=== PATIENT | male | born 1955 | race Caucasian/White ===

== ENCOUNTER → 2022-07-22 | Outpatient (CLI) | payer OTHER ==
[~2022-07-22] MED LIST: HYDR-4571 PO; TAMS1CAP17 PO
== END ==
LOC: M LABSMTC 09:13
PROVIDERS: ATTEND Anesthesiology
DX: Z20.828 Contact with and (suspected) exposure to other viral communicable diseases (principal); Z11.59 Encounter for screening for other viral diseases

== ENCOUNTER 2022-07-27 10:43 | Day surgery (SDC) | payer OTHER ==
[~2022-07-27] VITALS: Ht 177.8 cm; Wt 109.8 kg
[~2022-07-27 10:43] MED LIST changes: +ceFAZolin SOD 2 GM in IV 1 EA IV ONE
[2022-07-27] MEDS ORDERED: KETO10TAB PO (11:07)
[2022-07-27] MEDS ORDERED: LR 1,000 ML IV SCH ×2 (11:45→15:15)
[2022-07-27] MEDS ORDERED: propofoL 200 MG/20 ML VIAL As Ordered ONE (14:02)
[2022-07-27] MEDS ORDERED: LIDOCAINE 2% 100MG/5ML SDV (FOR ANES.) As Ordered ONE (14:02)
[2022-07-27] MEDS ORDERED: fentaNYL 100 MCG/2 ML INJECTION As Ordered ONE (14:03)
[2022-07-27] MEDS ORDERED: MIDAZOLAM INJ 2MG/2ML VIAL (J2250 PER 1MG) As Ordered ONE ×2 (14:03→15:26)
[2022-07-27] MEDS ORDERED: ISOVUE-300 61% 50ML VIAL As Ordered ONE (14:04)
[2022-07-27] MEDS ORDERED: ePHEDrine SULFATE 25 MG/5 ML(5MG/ML) SYRINGE As Ordered ONE (14:47)
[2022-07-27] MEDS ORDERED: dexameTHASONE 4 MG/ML 1ML VIAL (J1100 PER 1MG) As Ordered ONE ×2 (14:53→15:29)
[2022-07-27] MEDS ORDERED: ONDANSETRON 4MG 2ML VIAL As Ordered ONE ×2 (14:53→15:29)
[2022-07-27] MEDS ORDERED: fentaNYL 100 MCG/2 ML INJECTION IV PRN (15:15)
[2022-07-27] MEDS ORDERED: ONDANSETRON 4MG 2ML VIAL IV PRN (15:15)
[2022-07-27] MEDS ORDERED: oxyCODONE 5MG TAB PO PRN (15:15)
[2022-07-27] MEDS ORDERED: OXYB5TAB10 PO (15:18)
[2022-07-27] MEDS ORDERED: PYRI1TAB5 PO (15:18)
[2022-07-27] MEDS ORDERED: BACT800T5 PO (15:18)
[2022-07-27] MEDS ORDERED: fentaNYL 250 MCG/5 ML INJECTION As Ordered ONE (15:26)
[2022-07-27 16:30] VITALS: BP 144/79
[2022-07-31 12:08] LABS: Ca Ox Monohydrate 100 % (.); Size 2x2 mm (.)
== END 2022-07-27 16:33 | disposition home or self-care (01) ==
LOC: M SDC 10:43 → EDUNIT# 14:15 → M SDC 16:33
PROVIDERS: ATTEND Urology
DX: N20.1 Calculus of ureter (principal); K21.9 Gastro-esophageal reflux disease without esophagitis; Z79.899 Other long term (current) drug therapy; G47.33 Obstructive sleep apnea (adult) (pediatric)
CPT/HCPCS: 52356; 74420; 82365; C1769; C2617; J0690; J1100; J2250; J2405; J3010